=== PATIENT | female | born 2000 | race Caucasian/White ===

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

== ENCOUNTER 2024-02-13 15:43 | Emergency (ER) | payer OTHER ==
[~2024-02-13] VITALS: Ht 162.6 cm; Wt 49.9 kg
[2024-02-13 15:50] VITALS: BP 102/61; PULSE 96; O2SAT 97
[2024-02-13 16:56] VITALS: RESP 16
[2024-02-13 17:24] VITALS: TEMP 99
== END 2024-02-13 17:31 | disposition home or self-care (01) ==
LOC: ER 15:45
DX: R05.9 Cough, unspecified (principal); R09.81 Nasal congestion; J02.9 Acute pharyngitis, unspecified
CPT/HCPCS: 71045; 87502; 87503; 99284